=== PATIENT | female | born 1990 | race Two or more races ===

== ENCOUNTER 2017-10-10 09:52 | Emergency (ER) | payer SELFPAY ==
[2017-10-10] MEDS ORDERED: NORMAL SALINE 1000 ML 1,000 ML IV ONE (11:09)
[2017-10-10 11:40] LABS: ABSOLUTE BASOPHILS # (AUTO) 0.1 10^3/uL (0.0-0.2); ABSOLUTE EOSINOPHILS # (AUTO) 0.1 10^3/uL (0.0-0.6); ABSOLUTE LYMPHOCYTES (AUTO) 1.9 10^3/uL (0.5-4.7); ABSOLUTE MONOCYTES (AUTO) 0.7 10^3/uL (0.1-1.4); HEMATOCRIT 42.5 % (36.0-47.0); HEMOGLOBIN 14.6 g/dL (12.0-15.5); LYMPHOCYTES % (AUTO) 19.4 % (13-45); MEAN CORPUSCULAR HEMOGLOBIN 29.9 pg (27.0-33.4); MEAN CORPUSCULAR HGB CONC 34.3 g/dL (32.0-36.0); MEAN CORPUSCULAR VOLUME 87 fl (80-97); MONOCYTES % (AUTO) 7.2 % (3-13); PLATELET COUNT 363 10^3/uL (150-450); RED BLOOD COUNT 4.89 10^6/uL (3.72-5.28); RED CELL DISTRIBUTION WIDTH 13.5 % (11.5-14.0); SEGMENTED NEUTROPHILS % (AUTO) 71.4 % (42-78); TOTAL CELLS COUNTED % (AUTO) 100 %; WHITE BLOOD COUNT 9.8 10^3/uL (4.0-10.5)
[2017-10-10 11:47] LABS: APPEARANCE,URINE CLEAR; BILIRUBIN,URINE NEGATIVE (NEGATIVE); COLOR,URINE YELLOW; GLUCOSE, URINE NEGATIVE (NEGATIVE); KETONES,URINE TRACE mg/dL (NEGATIVE); LEUKOCYTE ESTERASE,URINE TRACE (NEGATIVE); NITRITE,URINE NEGATIVE (NEGATIVE); PROTEIN,URINE NEGATIVE (NEGATIVE); URINE SPECIFIC GRAVITY 1.012; UROBILINOGEN,URINE NEGATIVE mg/dL (<2.0)
--- NOTE | 2017-10-10 12:34 | ER Document Report ---
ED GI/ - General Chief Complaint: Vaginal Bleeding Stated Complaint: VAGINAL BLEEDING Time Seen by Provider: 10/10/17 10:56 Information source: Patient Notes: 27-year-old female G1 using IVF treatment by Dr. bello in [place] who is supposedly 5 weeks and 5 days by implantation who presents with some blood noticed on the toilet paper last night and this morning with some mild left- sided lower abdominal cramping. She denies any fevers, dysuria, or vaginal blood clots. TRAVEL OUTSIDE OF THE [place] IN LAST 30 DAYS: No - HPI Onset: Other - See above Timing/Duration: Gradual Quality of pain: Achy Severity at maximum: Mild Severity in ED: Mild Pain Level: Denies Context: Location: Other - See above Vaginal bleeding (Compared to normal period): Spotting Sexual history: Active Associated symptoms: Other - See above Exacerbated by: Denies Relieved by: Denies Similar symptoms previously: No Recently seen / treated by doctor: Yes - Related Data Allergies/Adverse Reactions: No Known Allergies Allergy (Verified 10/10/17 09:53) Past Medical History - General Information source: Patient - Social History Smoking Status: Never Smoker Cigarette use (# per day): No Chew tobacco use (# tins/day): No Smoking Education Provided: No Frequency of alcohol use: None Drug Abuse: None Family History: Reviewed & Not Pertinent Patient has suicidal ideation: No Patient has homicidal ideation: No Renal/ Medical History: Reports: Hx Kidney Stones. Denies: Hx Peritoneal Dialysis - Immunizations Immunizations up to date: Yes Hx Diphtheria, Pertussis, Tetanus Vaccination: Yes Review of Systems - Review of Systems Constitutional: denies: Fever Cardiovascular: denies: Chest pain, Palpitations Respiratory: denies: Short of breath Gastrointestinal: denies: Vomiting Genitourinary: denies: Dysuria Musculoskeletal: denies: Leg swelling Skin: Other - no hives. denies: Rash Neurological/Psychological: Other - no slurred speech -: Yes All other systems reviewed and negative Physical Exam - Vital signs Vitals: Temp Pulse Resp BP Pulse Ox 98.3 F 123 H 20 136/77 H 98 10/10/17 10:07 10/10/17 10:07 10/10/17 10:07 10/10/17 10:10/10/17 10:07 Notes: Reviewed vital signs and nursing note as charted by RN. CONSTITUTIONAL: Patient is noticeably crying and shaking and is very worried about a possible miscarriage HEAD: Normocephalic; atraumatic EYES: PERRL ENT: Normal nose; no rhinorrhea; moist mucous membranes NECK: Supple without meningismus; non-tender CARD: Tachycardic and regular without murmurs RESP: Normal chest excursion without splinting or tachypnea; breath sounds clear and equal bilaterally ABD/GI: Normal bowel sounds; non-distended; soft, non-tender to deep palpation of all 4 quadrants of the abdomen with no palpable uterus BACK: The back appears normal and is non-tender to palpation, there is no CVA tenderness EXT: Normal ROM in all joints; no edema SKIN: Normal color for age and race; warm; dry; no acute lesions noted NEURO: Moves all extremities equally; Motor and sensory function intact PSYCH: The patient's mood and manner are appropriate. Grooming and personal hygiene are appropriate. Course - Re-evaluation Re-evalutation: Given the history and physical examination we will order quantitative hCG, hemoglobin level, transvaginal ultrasound, and a RhoGam evaluation. Patient is noticeably very upset. I believe that this correlates with the tachycardia as recorded. 10/10/17 12:31 Initial labs as recorded. Patient still denies any pain. Heart rate is now 98. 10/10/17 13:06 Patient's labs and quantitative hCG is recorded. Dr. Asif called me and states he does see a sac with no obvious pole. He does state that the patient has equally symmetric bilateral enlarged ovaries with some fluid in the pelvis. I made him aware that the patient is undergoing IVF treatment. He believes this may be the etiology of the bilaterally enlarged ovaries. He does state given the fluid in the pelvis that the patient needs definite follow-up. I will attempt to call the patient's primary [employer]. 10/10/17 14:25 I have called the on-call [employer] at [phone]. I am awaiting for the call back at this time. 10/10/17 14:59 I have explained the full history and physical examination to the on-call OB/ FIELD STAFF Dr. mcallister. I have read the ultrasound reports. She states that she believes this is secondary to the IVF. She states she will have someone from the office call in the morning. I have relayed the urine analysis results. She has asked me to send a urine culture. - Vital Signs Vital signs: Temp Pulse Resp BP Pulse Ox 98.3 F 123 H 20 136/77 H 98 10/10/17 10:07 10/10/17 10:07 10/10/17 10:07 10/10/17 10:07 10/10/17 10:07 - Laboratory Result Diagrams: 10/10/17 11:19 Laboratory results interpreted by me: 10/10/17 10/10/17 10:16 11:19 Beta HCG, Quant 61797.00 H Urine Ketones TRACE H Urine Blood LARGE H Ur Leukocyte Esterase TRACE H Urine HCG, Qual POSITIVE H Discharge - Discharge Clinical Impression: Bleeding in early Condition: Good Disposition: HOME, SELF-CARE Additional Instructions: Come back immediately with any increased pain, change in location or quality of pain, fevers or vomiting, increased bleeding, lightheadedness or dizziness, or any other acute problems. Please make sure that you follow-up tomorrow with the [employer] as we have help expedite for you. Please make sure that they follow- up for the fluid in your pelvis and the bilateral enlarged ovaries as well as a recheck of your level. They state that they will also follow-up on the urine culture that we have sent to see if there is an obvious infection. Referrals: TRUDY VEGA MD [Primary Care Provider] - Follow up as needed
--- NOTE | 2017-10-10 13:20 | RADIOLOGY REPORT (SQ) ---
EXAM DESCRIPTION: U/S OB TRANSVAGINAL W/O DOP COMPLETED DATE/TIME: 10/10/2017 11:50 am REASON FOR STUDY: 33, preg with vag bleeding COMPARISON: None. TECHNIQUE: Transvaginal static and realtime grayscale images acquired of the pelvis. Additional gerald cted spectral and color Doppler images recorded. All images stored on PACs. [id number]. CLINICAL DATES: Last menstrual period 08/31/2017. LIMITATIONS: None. FINDINGS: FETUS: Living intrauterine . ULTRASOUND EGA: 5 weeks 5 days. ULTRASOUND TIM: 06/07/2018. CRL: Nonvisualized. FHR:Nonvisualized. UTERUS: The uterus measures 10.3 x 5.4 x 4.9 cm. Within the uterus there is evidence of a gestationa l sac measuring 1.5 cm. No pole identified. RIGHT ADNEXA: The right ovary measures 6.7 x 4.0 x 5.1 cm. Within the right ovary there is a 3.1 x 2.9 x 3.4 cm ovarian cyst. Additional small follicular cysts are noted. LEFT ADNEXA: Left ovary measures 4.1 x 4 x 5.0 cm. FREE FLUID: Large amount of free fluid noted within the cul de sac and adnexal regions. OTHER: No other significant finding. IMPRESSION: 1 There is evidence of a gestational sac within the uterus measuring 1.5 cm which is co mpatible with an intrauterine of approximately 6 weeks 2 days. These findings correlate wi th current beta HCG levels 2 . Large amount of free fluid in cul de sac and adnexal regions. Prominent right ovarian cyst ayan uring 3.1 x 2.9 x 3.4 cm. Bilateral enlarged ovaries. By history patient is receiving hormones for IVF treatment. Trimester of : First - 0 to 13 weeks. COMMENT: The case was discussed with Dr. Ayon. Follow-up with sighter would be recommended. TECHNICAL DOCUMENTATION: JOB ID: [id number] 2010 [employer]- All Rights Reserved rev-07/23 Reading location - IP/workstation name: [email or web address]
[2017-10-10 14:10] LABS: BACTERIA (WET MOUNT) 4+ BACTERIA SEEN; EPITHELIALS (WET MOUNT) 3+ EPITHELIALS SEEN; RBCS (WET MOUNT) 4+ RBCS SEEN; T.VAGINALIS (WET MOUNT) NO TRICHOMONAS SEEN; WBCS (WET MOUNT) 2+ WBCS SEEN; YEAST (WET MOUNT) NO YEAST SEEN
[2017-10-10 15:19] VITALS: BP 99/61
[2017-10-10 15:41] LABS: CHLAM PCR NOT DETECTED (NOT DETECT); GON PCR NOT DETECTED (NOT DETECT)
== END 2017-10-10 15:20 | disposition home or self-care (01) ==
LOC: ER 09:52
DX: O26.859 Spotting complicating pregnancy, unspecified trimester (principal); O09.819 Supervision of pregnancy resulting from assisted reproductive technology, unspecified trimester; O26.899 Other specified pregnancy related conditions, unspecified trimester; R10.32 Left lower quadrant pain; R00.0 Tachycardia, unspecified; R18.8 Other ascites; O34.80 Maternal care for other abnormalities of pelvic organs, unspecified trimester; N83.8 Other noninflammatory disorders of ovary, fallopian tube and broad ligament; Z3A.00 Weeks of gestation of pregnancy not specified; Z87.442 Personal history of urinary calculi
CPT/HCPCS: 99284; 96360; 86900; 86901; 36415; 87086; 87210; 84702; 85025; 81025; 81001; 87491; 87591; 76817; J7030

== ENCOUNTER → 2018-05-06 | Outpatient (CLI) | payer SELFPAY ==
[2018-05-06 12:00] LABS: APPEARANCE,URINE CLEAR; BILIRUBIN,URINE NEGATIVE (NEGATIVE); COLOR,URINE YELLOW; GLUCOSE, URINE NEGATIVE (NEGATIVE); KETONES,URINE NEGATIVE (NEGATIVE); LEUKOCYTE ESTERASE,URINE TRACE (NEGATIVE); NITRITE,URINE NEGATIVE (NEGATIVE); PROTEIN,URINE NEGATIVE (NEGATIVE); UROBILINOGEN,URINE NEGATIVE mg/dL (<2.0)
== END ==
LOC: OD 11:09
PROVIDERS: ATTEND Registered Nurse Women's Health Care, Ambulatory
DX: O99.89 Other specified diseases and conditions complicating pregnancy, childbirth and the puerperium (principal); R30.0 Dysuria
CPT/HCPCS: 81001; 87086

== ENCOUNTER → 2019-05-11 | Outpatient (CLI) | payer MEDICAID ==
--- NOTE | 2019-05-11 12:40 | WOMENS IMAGING REPORT ---
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 TECHNIQUE: Dynamic and static pickens-scale images acquired of the thyroid gland. Selected additional c olor/power Doppler images recorded. All images stored to PACS. LIMITATIONS: None. FINDINGS: RIGHT LOBE: 4.9 cm. Homogeneous echotexture. Large solid mass measuring 2.5 x 2.7 x 4.2 cm. Mixed isoechoic to slightly hypoechoic echogenicity. Smooth margins. Oriented parallel to the skin, wider than tall. Doppler evaluation demonstrates diffuse vascularity. LEFT LOBE: 547 Homogeneous echotexture. No cystic or solid masses. ISTHMUS: Normal size. Homogeneous echotexture. No cystic or solid masses. OTHER: No other significant finding. IMPRESSION: LARGE SOLID MASS IN THE RIGHT LOBE OF THE THYROID. RECOMMEND ULTRASOUND-GUIDED BIOPSY. TECHNICAL DOCUMENTATION: JOB ID: [id number] 2010 [employer]- All Rights Reserved Reading location - IP/workstation name: [email or web address]
== END ==
LOC: WI 10:55
PROVIDERS: ATTEND Otolaryngology
DX: E04.1 Nontoxic single thyroid nodule (principal)
CPT/HCPCS: 76536